=== PATIENT | male | born 1935 | race Caucasian/White ===

== ENCOUNTER 2024-03-03 12:50 | Inpatient (IN) | payer BC ==
[~2024-03-03] VITALS: Ht 170.2 cm; Wt 75.7 kg
[2024-03-03 13:39] LABS: BASOPHILS % (AUTO) 0.1 % (0.0-2.0); HEMATOCRIT 44 % (39-51); HEMOGLOBIN 14.5 g/dL (13.5-17.5); LYMPHOCYTES # (AUTO) 0.1 K/uL (0.8-4.8); MEAN CORPUSCULAR HEMOGLOBIN 31 PG (26.0-33.0); MEAN CORPUSCULAR HGB CONC 33 g/dl (31.0-36.0); MEAN CORPUSCULAR VOLUME 93 fL (80-96); MONOCYTES # (AUTO) 0.6 K/uL (0.1-1.30); MONOCYTES % (AUTO) 4.2 % (2.0-12.0); NEUTROPHILS # (AUTO) 14.1 K/uL (1.8-8.9); NEUTROPHILS % (AUTO) 94.7 % (43.0-81.0); PLATELET COUNT (AUTO) 251 K/uL (150-450); RED BLOOD CELL COUNT(AUTO) 4.75 MIL/uL (4.5-6.0); RED CELL DISTRIBUTION WIDTH 14.9 % (11.5-15.0); WHITE BLOOD COUNT (AUTO) 14.9 K/uL (4.3-11.0)
[2024-03-03 13:48] LABS: CARBON DIOXIDE 27 mmol/L (21-32); CHLORIDE 104 mmol/L (98-107); CREATININE 1.5 mg/dL (0.6-1.3); GLUCOSE 156 mg/dL (74-106); POTASSIUM 3.8 mmol/L (3.5-5.1); SODIUM SERUM 138 mmol/L (136-145); UREA NITROGEN, BLOOD 29 mg/dL (7-18)
[2024-03-03 13:50] LABS: INR 1.05 (0.91-1.10); PARTIAL THROMBOPLASTIN TIME 24.6 SEC (24.3-34.3); PROTHROMBIN TIME 10.8 SECS (9.2-11.1)
[2024-03-03 13:54] LABS: ALANINE AMINOTRANSFERASE 10 U/L (12-78); ALBUMIN 3.5 g/dL (3.4-5.0); ALCOHOL, BLOOD < 3 mg/dL (0-10); ALKALINE PHOSPHATASE 103 U/L (46-116); ASPARTATE AMINOTRANSFERASE 17 U/L (15-37); BILIRUBIN,DIRECT 0.3 mg/dL (0.0-0.2); BILIRUBIN,TOTAL 0.9 mg/dL (0.2-1.0); TOTAL PROTEIN, SERUM 6.9 g/dL (6.4-8.2)
[2024-03-03 15:29] LABS: APPEARANCE,URINE Cloudy (CLEAR); BILIRUBIN,URINE Negative (NEGATIVE); BLOOD, URINE Negative Ery/uL (NEGATIVE); COLOR,URINE YELLOW (YELLOW); KETONES,URINE Negative (NEGATIVE); LEUKOCYTE ESTERASE ,URINE Small (NEGATIVE); NITRITE, URINE Negative (NEGATIVE); PROTEIN,URINE 30 mg/dl (NEGATIVE); UGLUCOSE Negative (NEGATIVE)
[2024-03-03 15:40] LABS: AMPHETAMINE, URINE NEGATIVE (NEGATIVE); BARBITURATE, URINE NEGATIVE (NEGATIVE); BENZODIAZEPINE, URINE NEGATIVE (NEGATIVE); CANNABINOID, URINE NEGATIVE (NEGATIVE); COCCAINE, URINE NEGATIVE (NEGATIVE); OPIATE, URINE NEGATIVE (NEGATIVE); PHENCYCLIDINE SCREEN,URINE NEGATIVE (NEGATIVE)
[2024-03-03 15:56] LABS: ADD URINE CULTURE YES; BACTERIA,URINE Many /HPF (None Seen); RBC,URINE 0-2 /HPF (0-2); SQUAMOUS EPITHELIAL CELL,UR Few /HPF (None Seen)
[2024-03-03] MEDS ORDERED: METRONIDAZOLE 500MG/ NS 100ML 100 ML IV ONE (16:02)
[2024-03-03] MEDS ORDERED: CIPROFLOXACIN IV RTU 200 ML IV ONE (16:02)
[2024-03-03] MEDS: IV NS 0.9% 1,000 ML BAG IV ONE (16:06)
[2024-03-03] MEDS: FLAGYL/NS RTU 500 MG/100 ML PIGGYBACK IV ONE (16:14)
[2024-03-03] MEDS: CIPROFLOXACIN IV RTU 400 MG in PREMIX 1 EA IV ONE (16:19)
[2024-03-03] MEDS ORDERED: ONDANSETRON HCL/PF 4 MG/2 ML VIAL IVP PRN (16:30)
[2024-03-03] MEDS ORDERED: CIPROFLOXACIN IV RTU 200 MG in PREMIX 1 EA IV SCH (16:30)
[2024-03-03 16:38] LABS: LACTIC ACID 2.3 mmol/L (0.4-2.0)
[2024-03-03] MEDS ORDERED: IRBE150T28 PO (17:35)
[2024-03-03] MEDS ORDERED: VITAMIN D3 PO (17:35)
[2024-03-03] MEDS ORDERED: CARB1CAP5 PO (17:35)
[2024-03-03] MEDS ORDERED: ATOR10TA PO (17:35)
[2024-03-03] MEDS ORDERED: AMLO-212 PO (17:35)
[2024-03-03] MEDS ORDERED: ESCI20TA PO (17:35)
[2024-03-03] MEDS ORDERED: VITA1TAB56 PO (17:35)
[2024-03-03] MEDS ORDERED: LEVO50TA PO (17:35)
[2024-03-03] MEDS: ENOXAPARIN SODIUM 40 MG/0.4 ML DISP.SYRIN SQ SCH (17:39)
[2024-03-03] MEDS: IV 1/2NS 1000 ML 1,000 ML IV PRN (17:50)
[2024-03-03] MEDS: METRONIDAZOLE 500MG/ NS 100ML 500 MG in PREMIX 1 EA IV SCH (18:13)
[2024-03-03] MEDS: PEG 3350/NA SULF,BICARB,CL/KCL 4,000 ML BOTTLE PO ONE (18:27)
[2024-03-03 20:26] VITALS: BP 116/74; TEMP 98.3; O2SAT 97
[2024-03-03 20:27] VITALS: BP 116/74; TEMP 98.5; O2SAT 97
[2024-03-04] MEDS: CIPROFLOXACIN IV RTU 400 MG in PREMIX 1 EA IV SCH (03:32)
[2024-03-04 04:00] VITALS: BP 111/62; TEMP 98.3; O2SAT 96
[2024-03-04 07:23] LABS: BASOPHILS % (AUTO) 0.1 % (0.0-2.0); HEMATOCRIT 35 % (39-51); HEMOGLOBIN 11.8 g/dL (13.5-17.5); LYMPHOCYTES # (AUTO) 0.3 K/uL (0.8-4.8); MEAN CORPUSCULAR HEMOGLOBIN 32 PG (26.0-33.0); MEAN CORPUSCULAR HGB CONC 34 g/dl (31.0-36.0); MEAN CORPUSCULAR VOLUME 93 fL (80-96); MONOCYTES # (AUTO) 0.9 K/uL (0.1-1.30); MONOCYTES % (AUTO) 5.4 % (2.0-12.0); NEUTROPHILS # (AUTO) 15.6 K/uL (1.8-8.9); NEUTROPHILS % (AUTO) 92.5 % (43.0-81.0); PLATELET COUNT (AUTO) 216 K/uL (150-450); RED BLOOD CELL COUNT(AUTO) 3.75 MIL/uL (4.5-6.0); RED CELL DISTRIBUTION WIDTH 14.9 % (11.5-15.0); WHITE BLOOD COUNT (AUTO) 16.9 K/uL (4.3-11.0)
[2024-03-04 07:48] LABS: CALCIUM, SERUM 8.6 mg/dL (8.5-10.1); CARBON DIOXIDE 24 mmol/L (21-32); CHLORIDE 104 mmol/L (98-107); CREATININE 1.2 mg/dL (0.6-1.3); GLUCOSE 144 mg/dL (74-106); MAGNESIUM 2.1 mg/dL (1.8-2.4); PHOSPHORUS 2.5 mg/dL (2.5-4.9); SODIUM SERUM 138 mmol/L (136-145); UREA NITROGEN, BLOOD 27 mg/dL (7-18)
[2024-03-04 08:00] VITALS: BP 120/86; TEMP 97.7; O2SAT 91
[2024-03-04] MEDS: PANTOPRAZOLE 40 MG VIAL IV SCH (08:57)
[2024-03-04 09:13] VITALS: BP 120/86; TEMP 97.7; O2SAT 94
[2024-03-04 09:27] LABS: CHOLESTEROL 70 mg/dL (<200); HDL CHOLESTEROL 55 mg/dL (40-60); LDL 14 mg/dL (0-99); TRIGLYCERIDES 39 mg/dL (30-150)
[2024-03-04] MEDS: POTASSIUM CHLORIDE 20 MEQ TAB.PRT.SR PO SCH (11:02)
[2024-03-04 12:00] VITALS: BP 118/80; TEMP 97.8; O2SAT 94
[2024-03-04] MEDS ORDERED: METRONIDAZOLE 500 MG TABLET PO SCH (12:00)
[2024-03-04 16:00] VITALS: BP 130/81; TEMP 97.7; O2SAT 94
[2024-03-04 16:35] LABS: CREATININE, URINE 38.2 MG/DL (30.0-125.0)
[2024-03-04] MEDS: CARBIDOPA/LEV CR 50/200 MG 1 UDTAB.SA PO SCH (16:52)
[2024-03-04] MEDS: AMLODIPINE BESYLATE 5 MG TABLET PO SCH (16:55)
[2024-03-04] MEDS: LEVOTHYROXINE SODIUM 50 MCG TABLET PO SCH (16:55)
[2024-03-04] MEDS: METRONIDAZOLE 500 MG TABLET PO SCH (17:02)
[2024-03-04 20:00] VITALS: BP 124/80; TEMP 97.8; O2SAT 95
[2024-03-05] VITALS: BP 122/79; TEMP 97.8; O2SAT 96
[2024-03-05 04:00] VITALS: BP 116/82; TEMP 98; O2SAT 96
[2024-03-05 07:24] LABS: BASOPHILS % (AUTO) 0.1 % (0.0-2.0); EOSINOPHILS # (AUTO) 0.1 K/uL (0.0-0.7); EOSINOPHILS % (AUTO) 0.6 % (0.0-6.0); HEMATOCRIT 36 % (39-51); HEMOGLOBIN 12.1 g/dL (13.5-17.5); LYMPHOCYTES # (AUTO) 0.8 K/uL (0.8-4.8); LYMPHOCYTES % (AUTO) 5.5 % (20.0-44.0); MEAN CORPUSCULAR HEMOGLOBIN 31 PG (26.0-33.0); MEAN CORPUSCULAR HGB CONC 34 g/dl (31.0-36.0); MEAN CORPUSCULAR VOLUME 93 fL (80-96); MONOCYTES # (AUTO) 0.7 K/uL (0.1-1.30); MONOCYTES % (AUTO) 4.8 % (2.0-12.0); NEUTROPHILS # (AUTO) 13.3 K/uL (1.8-8.9); PLATELET COUNT (AUTO) 223 K/uL (150-450); RED BLOOD CELL COUNT(AUTO) 3.87 MIL/uL (4.5-6.0); RED CELL DISTRIBUTION WIDTH 14.7 % (11.5-15.0)
[2024-03-05 07:54] LABS: ALANINE AMINOTRANSFERASE < 6 U/L (12-78); ALBUMIN 2.4 g/dL (3.4-5.0); ALKALINE PHOSPHATASE 104 U/L (46-116); ASPARTATE AMINOTRANSFERASE 18 U/L (15-37); BILIRUBIN,TOTAL 0.8 mg/dL (0.2-1.0); CARBON DIOXIDE 24 mmol/L (21-32); CHLORIDE 106 mmol/L (98-107); CREATININE 1.1 mg/dL (0.6-1.3); GLUCOSE 105 mg/dL (74-106); MAGNESIUM 2.2 mg/dL (1.8-2.4); PHOSPHORUS 2.2 mg/dL (2.5-4.9); POTASSIUM 3.4 mmol/L (3.5-5.1); SODIUM SERUM 139 mmol/L (136-145); TOTAL PROTEIN, SERUM 6.1 g/dL (6.4-8.2); UREA NITROGEN, BLOOD 16 mg/dL (7-18)
[2024-03-05 08:00] VITALS: BP 136/83; TEMP 98.6; O2SAT 95
[2024-03-05] MEDS: ATORVASTATIN 10 MG TABLET PO SCH (09:16)
[2024-03-05] MEDS: ESCITALOPRAM OXALATE (10 MG) 10 MG TABLET PO SCH (09:16)
[2024-03-05] MEDS: POTASSIUM CHLORIDE 20 MEQ POWDER PACKET PO ONE (10:15)
[2024-03-05 12:00] VITALS: BP 121/74; TEMP 98.6; O2SAT 93
[2024-03-05] MEDS: NEUTRA PHOS 1 POWD.PACKET PO ONE (15:25)
[2024-03-05 16:00] VITALS: BP 126/80; TEMP 97.9; O2SAT 93
[2024-03-05 20:00] VITALS: BP 120/82; TEMP 97.5; O2SAT 93
[2024-03-06 04:00] VITALS: BP 125/84; TEMP 98.1; O2SAT 93
[2024-03-06 07:03] LABS: BASOPHILS # (AUTO) 0.1 K/uL (0.0-0.2); BASOPHILS % (AUTO) 0.5 % (0.0-2.0); EOSINOPHILS # (AUTO) 0.3 K/uL (0.0-0.7); EOSINOPHILS % (AUTO) 2.2 % (0.0-6.0); HEMATOCRIT 36 % (39-51); HEMOGLOBIN 12.2 g/dL (13.5-17.5); LYMPHOCYTES % (AUTO) 7.8 % (20.0-44.0); MEAN CORPUSCULAR HEMOGLOBIN 31 PG (26.0-33.0); MEAN CORPUSCULAR HGB CONC 34 g/dl (31.0-36.0); MEAN CORPUSCULAR VOLUME 93 fL (80-96); MONOCYTES # (AUTO) 0.7 K/uL (0.1-1.30); MONOCYTES % (AUTO) 5.2 % (2.0-12.0); NEUTROPHILS % (AUTO) 84.3 % (43.0-81.0); PLATELET COUNT (AUTO) 228 K/uL (150-450); RED BLOOD CELL COUNT(AUTO) 3.91 MIL/uL (4.5-6.0); WHITE BLOOD COUNT (AUTO) 13.1 K/uL (4.3-11.0)
[2024-03-06 07:26] LABS: ALBUMIN 2.2 g/dL (3.4-5.0); ALKALINE PHOSPHATASE 85 U/L (46-116); ASPARTATE AMINOTRANSFERASE 7 U/L (15-37); BILIRUBIN,TOTAL 0.6 mg/dL (0.2-1.0); CALCIUM, SERUM 8.9 mg/dL (8.5-10.1); CARBON DIOXIDE 26 mmol/L (21-32); CHLORIDE 105 mmol/L (98-107); CREATININE 1.1 mg/dL (0.6-1.3); GLUCOSE 144 mg/dL (74-106); MAGNESIUM 2.4 mg/dL (1.8-2.4); PHOSPHORUS 2.8 mg/dL (2.5-4.9); POTASSIUM 3.4 mmol/L (3.5-5.1); SODIUM SERUM 141 mmol/L (136-145); TOTAL PROTEIN, SERUM 5.9 g/dL (6.4-8.2); UREA NITROGEN, BLOOD 16 mg/dL (7-18)
[2024-03-06 07:27] LABS: ALANINE AMINOTRANSFERASE < 6 U/L (12-78)
[2024-03-06 08:00] VITALS: BP 145/89; TEMP 97.7; O2SAT 94
[2024-03-06] MEDS: POTASSIUM CHLORIDE 20 MEQ TAB.PRT.SR PO SCH (10:32)
[2024-03-06 12:00] VITALS: BP 124/91; TEMP 97.7; O2SAT 94
[2024-03-06] MEDS ORDERED: CIPR250T4 PO (15:48)
[2024-03-06] MEDS ORDERED: METR500T PO (15:48)
[2024-03-06 16:00] VITALS: BP 143/88; TEMP 97.9; O2SAT 93
[2024-03-06] MEDS ORDERED: CIPROFLOXACIN HCL 500 MG TABLET PO SCH (18:00)
== END 2024-03-06 17:00 | disposition home health service (06) | DRG 392 ==
LOC: ER 12:59 → MEDSG1 16:18 → TELE1 16:52
DX: K57.32 Diverticulitis of large intestine without perforation or abscess without bleeding (principal); N39.0 Urinary tract infection, site not specified; N17.9 Acute kidney failure, unspecified; G20.A1 Parkinson's disease without dyskinesia, without mention of fluctuations; Z20.822 Contact with and (suspected) exposure to COVID-19; E78.5 Hyperlipidemia, unspecified; I10 Essential (primary) hypertension; E03.9 Hypothyroidism, unspecified; Z88.0 Allergy status to penicillin; Z79.890 Hormone replacement therapy; Z79.899 Other long term (current) drug therapy; N40.0 Benign prostatic hyperplasia without lower urinary tract symptoms; N28.1 Cyst of kidney, acquired; K59.00 Constipation, unspecified; E86.9 Volume depletion, unspecified; D64.9 Anemia, unspecified; E87.6 Hypokalemia; M89.8X9 Other specified disorders of bone, unspecified site
CPT/HCPCS: 36415; 70450-TC; 71045-TC; 80048-TC; 80053-TC; 80061-TC; 80076-TC; 81001; 82570-TC; 82962-TC; 83605-TC; 83690-TC; 83735-TC; 84100-TC; 84300-TC; 84443-TC; 84484-TC; 85025-TC; 85730-TC; 87040-TC; 87086-TC; 97112-TC; 97116-TC; 97530-TC; A4216; G0378; G0480; J0744; J1650; J3490; J7030